=== PATIENT | male | born 1945 | race Caucasian/White ===

== ENCOUNTER 2021-01-20 20:36 | Inpatient (IN) | payer MEDICARE, OTHER ==
[~2021-01-20] VITALS: Ht 188 cm; Wt 85.0 kg
[2021-01-20 21:06] LABS: HEMOGLOBIN 16.2 gm/dl (14.0-17.5); RED BLOOD COUNT 5.12 M/UL (4.20-5.50); WHITE BLOOD COUNT 16.6 K/UL (4.5-11.0)
[2021-01-20 21:40] LABS: BUN/CREATININE RATIO 38 (0-10)
[2021-01-21] MEDS ORDERED: LISINOPRIL20 MG PO (04:20)
[2021-01-21] MEDS ORDERED: METOPROLOL TART25 MG PO (04:21)
[2021-01-21] MEDS ORDERED: SIMVASTATIN20 MG PO (04:21)
[2021-01-21] MEDS ORDERED: OMEPRAZOLE20 M1 PO (04:22)
[2021-01-21] MEDS ORDERED: VALIUM2 MG PO (04:23)
--- NOTE | 2021-01-21 06:39 | NUR ---
01/21/21 1092 PASSED ON TO CLARIFY HEPARIN ORDER WITH PULM TO ELLEN
[2021-01-21 06:57] LABS: BUN/CREATININE RATIO 41 (0-10)
[2021-01-21 10:13] LABS: BUN/CREATININE RATIO 39 (0-10)
[2021-01-21 13:44] LABS: HEMOGLOBIN 14.5 gm/dl (14.0-17.5)
[2021-01-21 13:45] LABS: RED BLOOD COUNT 4.49 M/UL (4.20-5.50); WHITE BLOOD COUNT 20.8 K/UL (4.5-11.0)
[2021-01-22 07:51] LABS: HEMOGLOBIN 13.4 gm/dl (14.0-17.5); RED BLOOD COUNT 4.3 M/UL (4.20-5.50)
[2021-01-22 07:53] LABS: WHITE BLOOD COUNT 11.2 K/UL (4.5-11.0)
[2021-01-22 08:46] LABS: BUN/CREATININE RATIO 32 (0-10)
[2021-01-23 05:27] LABS: HEMOGLOBIN 14.5 gm/dl (14.0-17.5); RED BLOOD COUNT 4.58 M/UL (4.20-5.50)
[2021-01-23 05:44] LABS: WHITE BLOOD COUNT 18.9 K/UL (4.5-11.0)
[2021-01-23 05:45] LABS: BUN/CREATININE RATIO 32 (0-10)
[2021-01-24 05:14] LABS: HEMOGLOBIN 14.8 gm/dl (14.0-17.5); RED BLOOD COUNT 4.69 M/UL (4.20-5.50); WHITE BLOOD COUNT 16.6 K/UL (4.5-11.0)
[2021-01-24 06:04] LABS: BUN/CREATININE RATIO 43 (0-10)
[2021-01-24 16:15] LABS: HEMATOCRIT 41.2 % (37.5-51.0)
[2021-01-25 05:05] LABS: HEMOGLOBIN 15.7 gm/dl (14.0-17.5); RED BLOOD COUNT 4.97 M/UL (4.20-5.50)
[2021-01-25 05:13] LABS: WHITE BLOOD COUNT 20.8 K/UL (4.5-11.0)
[2021-01-30 18:09] LABS: 1 HR INCUB PT 1:1NP 11.8 sec (9.1-12.0); DRVVT 56.6 sec (0.0-47.0); DRVVT CONFIRM 1.6 ratio (0.8-1.2); DRVVT MIX 44.1 sec (0.0-40.4); PT 1:1NP 11.3 sec (9.1-12.0); PTT-LA 34.9 sec (0.0-51.9); THROMBIN NEUTRALIZATION 18.4 sec (0.0-23.0); THROMBIN TIME >150.0 sec (0.0-23.0)
== END 2021-01-25 13:15 | disposition expired | DRG 870 ==
LOC: ER1 20:36 → CDU 01-21 00:35 → CCU 01-21 00:35
PROVIDERS: Emergency Medicine; Internal Medicine; Internal Medicine Infectious Disease; Internal Medicine Pulmonary Disease; ADMIT Internal Medicine
PROC: 0BH17EZ Insertion of Endotracheal Airway into Trachea, Via Natural or Artificial Opening (ICD-10-PCS; principal; 2021-01-21)
PROC: 5A1955Z Respiratory Ventilation, Greater than 96 Consecutive Hours (ICD-10-PCS; principal; 2021-01-21)
PROC: XW033H5 Introduction of Tocilizumab into Peripheral Vein, Percutaneous Approach, New Technology Group 5 (ICD-10-PCS; 2021-01-21)
PROC: 3E033XZ Introduction of Vasopressor into Peripheral Vein, Percutaneous Approach (ICD-10-PCS; 2021-01-21)
PROC: B24BZZZ Ultrasonography of Heart with Aorta (ICD-10-PCS; 2021-01-21)
PROC: 8E0ZXY6 Isolation (ICD-10-PCS; 2021-01-21)
DX: A41.89 Other specified sepsis (principal); I26.99 Other pulmonary embolism without acute cor pulmonale; K72.00 Acute and subacute hepatic failure without coma; I63.9 Cerebral infarction, unspecified; J80 Acute respiratory distress syndrome; G93.41 Metabolic encephalopathy; U07.1 COVID-19; Z23 Encounter for immunization; J12.82 Pneumonia due to coronavirus disease 2019; R65.21 Severe sepsis with septic shock; D68.59 Other primary thrombophilia; N28.0 Ischemia and infarction of kidney; E87.1 Hypo-osmolality and hyponatremia; N39.0 Urinary tract infection, site not specified; D68.51 Activated protein C resistance; D68.9 Coagulation defect, unspecified; I74.11 Embolism and thrombosis of thoracic aorta; E87.2 Acidosis; E87.3 Alkalosis; Z66 Do not resuscitate; Z51.5 Encounter for palliative care; I27.20 Pulmonary hypertension, unspecified; I08.1 Rheumatic disorders of both mitral and tricuspid valves; J43.9 Emphysema, unspecified; E78.5 Hyperlipidemia, unspecified; I48.91 Unspecified atrial fibrillation; D73.5 Infarction of spleen; E87.8 Other disorders of electrolyte and fluid balance, not elsewhere classified; E87.5 Hyperkalemia; Z86.73 Personal history of transient ischemic attack (TIA), and cerebral infarction without residual deficits
CPT/HCPCS: ECHO; 31500; 36415; 36600; 51702; 70450; 71045; 80053; 80307; 81001; 82140; 82550; 82553; 82607; 82728; 82747; 82803; 83605; 83615; 83690; 83735; 83874; 83880; 84100; 84311; 84439; 84443; 84484; 85025; 85610; 85611; 85730; 86140; 87040; 87070; 87077; 87086; 87186; 87205; 93005; 93306; 94002; 94003; 94640; 94760; 95819; 96374; 96375; 96376; 99285; A6212; C9113; G0480; J0330; J0696; J1100; J1160; J1644; J1650; J2370; J2543; J2704; J3010; J3370; J3430; J7030; J7070; Q9967; U0002